=== PATIENT | male | born 1960 | race African-American/Black ===

== ENCOUNTER 2022-07-24 09:11 | Emergency (ER) | payer MEDICAID ==
[~2022-07-24] VITALS: Ht 165.1 cm; Wt 59.0 kg
[2022-07-24 09:19] VITALS: BP 131/81
[2022-07-24] MEDS ORDERED: CEPH500C2 PO (11:34)
[2022-07-24] MEDS ORDERED: SULF1TAB48 PO (11:34)
== END 2022-07-24 12:27 | disposition home or self-care (01) ==
LOC: ER 09:11
DX: L03.116 Cellulitis of left lower limb (principal)
CPT/HCPCS: 71045; 73562; 99284